=== PATIENT | male | born 1950 | race Caucasian/White ===

== ENCOUNTER 2016-04-28 09:30 | Outpatient (RCR) | payer OTHER | END 2016-05-04 | disposition home or self-care (01) | LOC: PTY 09:30 | DX: M25.561 Pain in right knee (principal); M25.562 Pain in left knee ==

== ENCOUNTER 2016-05-20 10:57 | Outpatient (RCR) | payer OTHER | END 2016-06-04 | disposition home or self-care (01) | LOC: PTY 10:57 | DX: M25.561 Pain in right knee (principal); M25.562 Pain in left knee; M77.02 Medial epicondylitis, left elbow | CPT/HCPCS: 97035; 97110; 97140; G0283 ==

== ENCOUNTER 2016-06-11 09:00 | Outpatient (RCR) | payer OTHER | END 2016-07-04 | disposition home or self-care (01) | LOC: PTY 09:00 | DX: M25.561 Pain in right knee (principal); M25.562 Pain in left knee | CPT/HCPCS: 97110; 97140; G0283 ==